=== PATIENT | female | born 1975 | race Caucasian/White ===

== ENCOUNTER 2016-06-10 15:39 | Emergency (ER) | payer OTHER ==
[2016-06-10 16:04] VITALS: RESP 18; TEMP 98.2
--- NOTE | 2016-06-10 16:48 | UCPHY ---
[id number] This patient is exposed to her who is diagnosed with influenza A by rapid flu check this morning. He has been coughing for the past few days with fevers in this patient developed illness over the past day and half consisting of cough and fatigue. She is concerned that she may be developing early influenza she also has nasal congestion. She explains that she has exercise- induced asthma but when she gets URI symptoms her asthma symptoms worsen. At the moment she has no significant respiratory symptoms besides the cough. ROS: No high fevers or chills. She reports mild fatigue. No other constitutional symptoms. HEENT: No throat pain or ear pain. Pulmonary: No pleuritic pain or respiratory distress cardiovascular: No lightheadedness. GI : No vomiting. 7 point ROS is otherwise negative. Smoking Status: Never smoked Physical Exam: Physical Exam Vital signs are normal. General: No acute distress HEENT: Nose: Clear discharge with no sinus tenderness to percussion. Oropharynx is clear with no erythema or exudates. No dysphonia. Ears external canals and TMs clear bilaterally. Eyes: Pupils equal and react to light. Extraocular motions are intact. Lungs: Minimal faint expiratory wheeze. No rales or rhonchi. No respiratory distress. Cardiac: Regular rate and rhythm with no murmur gallop or rub. Skin: No rash or pallor. Neuro: Alert and oriented x3 with no sensorimotor deficits. Constitutional: Initial Vital Signs Temperature (C) 36.8 C 06/10/16 16:01 Heart Rate 59 L 06/10/16 16:01 Respiratory Rate 18 06/10/16 16:01 Blood Pressure 119/83 H 06/10/16 16:01 O2 Sat (%) 99 06/10/16 16:01 O2 Delivery Mode Room Air Allergies/Adverse Reactions: No Known Allergies Allergy (Unverified 06/10/16 16:00) Home Medications: Medication Instructions Recorded Levothyroxine [Synthroid] 0.075 mcg PO DAILY 07/10/11 Albuterol Hfa Anes Only [Proair 2 puffs IH Q4 PRN #1 mdi 06/10/16 Hfa Icu (*)] Fluticasone Hfa 220 Mcg [Flovent 2 puffs IH DAILY #1 mdi 06/10/16 220 MCG Hfa MDI (*)] Oseltamivir Phosphate [Tamiflu 75 75 mg PO BID #10 cap 06/10/17 mg (*)] MDM/Departure - MDM ED Course/Re-evaluation: Given the patient's previous history of asthma in recent exposure flu with new onset of symptoms, cover with Tamiflu. I counseled regarding this. At the moment she has no significant evidence of asthma exacerbation. However she is out of albuterol also provide a new script as well some Flovent if needed for any ongoing cough. - Depart Disposition: Home, Routine, Self-Care Clinical Impression: Exposure to the flu Asthma Qualifiers: Asthma severity: mild intermittent Asthma complication type: uncomplicated Qualifier Code: (J45.20) Mild intermittent asthma, uncomplicated Clinical Impression: (Ruled Out): Influenza Condition: Good Instructions: Influenza (ED) Additional Instructions: Diagnosis: Exposure to influenza 2. Asthma Plan: Humidifier Albuterol inhaler with spacer for cough, wheeze or shortness of breath Tamiflu If he will cough last beyond the next 5-7 days despite the albuterol then add Flovent steroid inhaler in addition. Tylenol and/or ibuprofen if needed for fevers or chills. Return if you have any difficulty breathing or other concerns Prescriptions: Fluticasone Hfa 220 Mcg [Flovent 220 MCG Hfa MDI (*)] 2 puffs IH DAILY #1 mdi Albuterol Hfa Anes Only [Proair Hfa Icu (*)] 2 puffs IH Q4 PRN #1 mdi PRN Reason: Wheezing Oseltamivir Phosphate [Tamiflu 75 mg (*)] 75 mg PO BID #10 cap Referrals: [place],. [Primary Care Provider] - As per Instructions - PQRS PQRS Measurement: NA
[2016-06-10 16:52] VITALS: BP 115/67; PULSE 82; O2SAT 95
== END 2016-06-10 16:54 | disposition home or self-care (01) ==
LOC: CED 15:39
DX: R05 Cough (principal); R53.83 Other fatigue; Z20.828 Contact with and (suspected) exposure to other viral communicable diseases; J45.20 Mild intermittent asthma, uncomplicated
CPT/HCPCS: G0463-PO